=== PATIENT | female | born 1940 | race Caucasian/White ===

== ENCOUNTER 2017-09-21 00:52 | Emergency (ER) | payer OTHER, MEDICARE ==
[~2017-09-21] VITALS: Ht 165.1 cm; Wt 87.1 kg
[~2017-09-21 00:52] MED LIST: ANTIVERT 25 MG25 M1 PO; CIPRO 500MG TA500 MG PO; HYDROXYZINE HCL25 M2 PO; METRONIDAZOLE500 MG PO; PREDNISONE10 M2 PO; TYLENOL #31 TAB PO; ZOFRAN ODT4 MG SL
[2017-09-21 01:03] VITALS: BP 158/84
[2017-09-21] MEDS ORDERED: AMOXICILLIN875 M1 PO (01:26)
--- NOTE | 2017-09-21 01:28 | ED INFLUENZA/URI COMPLAINT ---
History of Present Illness General Chief Complaint: Upper Respiratory Sx/Fever Stated Complaint: COUGH Source: patient, old records Exam Limitations: no limitations Vital Signs & Intake/Output Vital Signs & Intake/Output Vital Signs Date Time Temp Pulse Resp B/P B/P Pulse O2 O2 Flow FiO2 Mean Ox Delivery Rate 09/21 0103 98.1 96 16 158/84 97 Room Air Room Air Allergies Coded Allergies: shellfish derived (Severe, ANAPHYLAXIS 02/16/17) Reconcile Medications Amoxicillin 875 MG TABLET 1 TAB PO BID sinusitis Ciprofloxacin (Cipro) 500 MG TABLET 1 TAB PO BID DIVERTICULITIS Hydroxyzine Hydrochloride (Atarax) 25 MG TABLET 1 TAB PO BID PRN ITCHY Meclizine (Antivert) 25 MG TAB 1 TAB PO Q6P PRN VERTIGO Metronidazole 500 MG TABLET 1 TAB PO 4 TIMES/DAY DIVERTICULITIS Ondansetron (Zofran Odt) 4 MG TAB.RAPDIS 1 TAB SL Q8 PRN NAUSEA/VOMITING Prednisone 10 MG TABLET 1 TAB PO DAILY RASH 3 TASB PO X 3 DAYS, 2 TABS PO X 3 DAYS, 1 TAB PO X 3 DAYS Tylenol With Codeine (Tylenol With Codeine #3 Tablet) 300 MG-30 MG TABLET 1 TAB PO Q6 PAIN [id number] Triage Note: 77YO FEMALE TO TRIAGE W/CO COUGH SINCE FRIDAY, WAS SEEN AT URGENT CARE TODAY, HAD NEG STREP TEST AND TONITE "FEELS LIKE SCRAPES IN HER THROAT" Triage Nurses Notes Reviewed? yes Onset: Last week Duration: day(s):, getting worse Timing: recent history Severity: moderate Prior Episodes/Possible Cause: illness exposure No Modifying Factors: none Associated Symptoms: cough, nasal congestion, nasal drainage, sinus infection, sore throat LMP (ages 10-50): post menopausal : No Patient currently breastfeeds: No HPI: One week prior to admission patient complains of nasal congestion and drainage. 1 day prior to admission patient complains of episodes of throat tickling followed by hacking nonproductive cough. She denies fever chills nausea vomiting diarrhea abdominal pain headache chest pain shortness of breath dysuria rash bleeding. Past History Travel History Traveled to [place] past 21 day No Medical History Any Pertinent Medical History? see below for history Neurological: migraine EENT: NONE Cardiovascular: hypertension, hyperlipidemia Respiratory: NONE Gastrointestinal: GERD Hepatic: NONE Renal: NONE Musculoskeletal: NONE Psychiatric: NONE Endocrine: NONE Blood Disorders: NONE Cancer(s): breast cancer [employer]/Reproductive: NONE Surgical History Surgical History: non-contributory Psychosocial History What is your primary language Thai Tobacco Use: Quit >30 days ago Family History Hx Contributory? No Review of Systems Review of Systems Constitutional: Reports: see HPI, malaise. EENTM: Reports: see HPI, nasal congestion. Respiratory: Reports: see HPI, cough. Denies: sputum production. Cardiovascular: Reports: no symptoms. GI: Reports: no symptoms. Genitourinary: Reports: no symptoms. Musculoskeletal: Reports: no symptoms. Skin: Reports: no symptoms. Neurological/Psychological: Reports: no symptoms. Hematologic/Endocrine: Reports: no symptoms. Immunologic/Allergic: Reports: no symptoms. All Other Systems: Reviewed and Negative Physical Exam Physical Exam General Appearance: well developed/nourished, alert, awake, anxious, mild distress, obese Head: atraumatic, normal appearance Eyes: Bilateral: normal appearance, PERRL, EOMI. Ears, Nose, Throat: moist mucous membrane, Tympanic normal, pharynx normal, nasal congestion, nasal drainage Neck: normal inspection, supple, full range of motion, trachea midline Respiratory: normal breath sounds, chest non-tender, no respiratory distress, quiet respiration, lungs clear Cardiovascular: regular rate/rhythm, normal peripheral pulses, norml femoral pulses equa Peripheral Pulses: 4+ carotid (R), 4+ carotid (L) Gastrointestinal: normal bowel sounds, soft, non-tender, no organomegaly Back: normal inspection, normal range of motion Extremities: normal inspection, normal capillary refill, normal range of motion, no edema Neurologic/Psych: no motor/sensory deficits, awake, alert, oriented x 3, normal gait, normal mood/affect, grab hooker II-XII nml as tested Reflexes: 2+: bicep (R), bicep (L). Skin: intact, normal color, warm/dry Lymphatic: no anterior cervical mona Core Measures Sepsis Present: No Sepsis Focused Exam Completed? No Progress Differential Diagnosis: influenza, otitis, sinusitis Plan of Care: Current Medications Sig/Uzma Start time Last Medication Dose Stop Time Status Admin Amoxicillin 750 MG ONCE ONE 09/21 129 UNVr (Amoxil) 09/21 130 Guaifenesin/ 10 ML ONCE ONE 09/21 129 UNVr Dextromethorphan 09/21 130 (Robitussin Dm) Oxymetazoline HCl 2 SPRAY ONCE ONE 09/21 129 UNVr (Afrin) 09/21 130 Initial ED EKG: none Departure Departure Time of Disposition: 124 Disposition: HOME OR SELF CARE Condition: Stable Clinical Impression Primary Impression: Sinusitis Referrals: To MARKS,Kermit Blackwell (PCP/Family) Departure Forms: Customer Survey General Discharge Information Prescriptions: Current Visit Scripts Amoxicillin 1 TAB PO BID #20 TAB
== END 2017-09-21 01:35 ==
LOC: ERH 00:52
DX: J32.9 Chronic sinusitis, unspecified (principal)